=== PATIENT | female | born 1970 | race Caucasian/White ===

== ENCOUNTER 2020-08-06 10:43 | Outpatient (CLI) | payer MEDICARE, MEDICAID, SELFPAY ==
--- NOTE | 2020-08-06 10:50 | MR_ITS ---
WS: [id number] MRI LEFT SHOULDER NONCONTRAST TECHNIQUE: Sagittal T2, coronal T1, T2 and proton density imaging. Axial gradient PDE imaging. CLINICAL INFORMATION: PAIN IN LEFT ARM;CONCERNS OF BICEP TEAR COMPARISON: None. FINDINGS: Moderate degenerative arthritis at the AC joint. Mild downsloping of the acromion. Slight subacromial spurring. Small amount of edema at the AC joint. Small intrasubstance tear involving the distal supr aspinatus measuring 5 mm. Additional undersurface tear at the supraspinatus insertion. Tendinopathy w ithin the supraspinatus. Chronic thinning of the distal supraspinatus. Infraspinatus appears intact. Normal teres minor. Small subcoracoid effusion. Tendinopathy with chronic thinning of the distal subscapularis. Tiny mathew ps remnant in the bicipital groove with medial subluxation. Intra-articular biceps tendon is torn wit h edema in the rotator interval. MR/MR shoulder LT wo con* [id number] IMPRESSION: 1. Small intrasubstance tear involving the distal supraspinatus measuring 5 mm 2. Additional undersurface tear at the supraspinatus insertion. 3. Moderate degenerative arthritis AC joint with downsloping of the acromion. 4. Tiny biceps remnant in the bicipital groove with medial subluxation. Intra- articular biceps tendon appears torn with edema in the rotator interval. 5. Small subcoracoid effusion. 6. Degenerative fraying of the glenoid labrum.
== END 2020-08-06 10:44 | disposition home or self-care (01) ==
LOC: RADSHAW 10:49
PROVIDERS: Visit Provider Nurse Practitioner Family
DX: M79.89 Other specified soft tissue disorders (principal); M75.102 Unspecified rotator cuff tear or rupture of left shoulder, not specified as traumatic; M19.012 Primary osteoarthritis, left shoulder; M25.412 Effusion, left shoulder; X58.XXXA Exposure to other specified factors, initial encounter
CPT/HCPCS: 73221

== ENCOUNTER 2022-12-30 13:00 | Observation (INO) | payer MEDICARE, MEDICAID, SELFPAY ==
[2022-12-30] VITALS (22 sets, daily range): BP systolic 140–205; BP diastolic 85–139; PULSE 69–87; RESP 16–36; TEMP 36.4–37.3; O2SAT 92–97; BMI 36.6
--- NOTE | 2022-12-30 13:18 | ECG_ITS ---
[facility] Test Date: 2022-12-30 Pat Name: Valentina Brothers Department: Room: Gender: Female Nurse Assessor: : 1970 Requested By: Elvis Larsen Order Number: [id number] Judson MD: Melvin Arriola M.D. Measurements Intervals [place] Rate: 85 P: 43 WA: 116 QRS: 5 QRSD: 84 T: 40 QT: 373 QTc: 444 Interpretive Statements SINUS RHYTHM WITH SHORT WA INTERVAL Nonspecific T wave changes No previous ECG available for comparison Electronically Signed On 12-31-2022 0:27:37 CDT by Melvin Arriola M.D. [id number]
--- NOTE | 2022-12-30 14:57 | CTR_ITS ---
PROCEDURE INFORMATION: Exam: CT Head Without Contrast Exam date and time: 12/30/2022 3:09 PM Age: 52 years old Clinical indication: Pain; Headache not specified; Additional info: HTN, PRITCHETT TECHNIQUE: Imaging protocol: Computed tomography of the head without contrast. Axial, coronal and sagittal reformatted images were created and reviewed. Radiation optimization: All CT scans at this facility use at least one of these dose optimization techniques: automated exposure control; mA and/or kV adjustment per patient size (includes targeted exams where dose is matched to clinical indication); or iterative reconstruction. REPORTING DATA: Count of CT and Cardiac NM exams in prior 12 months: This patient has received 0 known CTs and 0 known cardiac nuclear medicine studies in the 12 months prior to the current study. COMPARISON: No relevant prior studies available. RADIATION DOSE METRICS: Total DLP (mGy-cm): 1073.71 FINDINGS: Brain: No CT evidence of acute intracranial hemorrhage or acute territorial infarction. No significant mass effect or midline shift. Basal cisterns patent. Cerebral ventricles: Normal in size and configuration. Paranasal sinuses: Polypoid ethmoid and right maxillary sinus mucosal thickening. Noo air-fluid levels. Mastoid air cells: Minimal opacification of the left greater than right mastoid air cells. Bones/joints: No acute osseous abnormality. Chronic deformity of the right medial orbital wall and orbital floor. Soft tissues: Grossly unremarkable. CT/CT head wo con* [id number] IMPRESSION: 1. No CT evidence of acute intracranial pathology. 2. Additional findings, as above.
--- NOTE | 2022-12-30 14:57 | XR_ITS ---
WS: [id number] Exam: XR chest 1V portable [id number] Date/Time of Exam: 12/30/2022 3:10 PM Reason For Exam: sob, hypertension Comparison 04/24/2009. The lungs are fully inflated and clear. Cardiomediastinal silhouette is unremarkable for technique. N o pleural effusions. Probable hiatal hernia. Regional bony elements are intact. XR/XR chest 1V portable [id number] IMPRESSION: 1. No acute process noted. 2. Probable hiatal hernia.
--- NOTE | 2022-12-30 14:58 | W.ED.GENADLT ---
Documented by User: LENORA Medellin 01/03/23 07:29 HPI - General Adult General: Chief complaint: Arrhythmia/Palpitations Stated complaint: Sent from , BP issues Time Seen by Provider: 12/30/22 14:46 Source: patient Mode of arrival: ambulatory Limitations: no limitations History of Present Illness: Patient is a 52-year-old female who presents to the ED today for evaluation of hypertension. Patient states her home health nurse routinely came to her house today and checked her blood pressure and she was told it was significantly elevated and that she needed to go get medical attention. She states her primary care provider is Dr. Nora Donahue but she was not able to get into her so she went to a [facility] walk-in clinic. States blood pressure over there was significantly elevated as well so they told her to come to the emergency department. Upon arrival here her blood pressure is 190s/130s. She tells me she generally does not feel well. She complains of a headache, dizziness, intermittent blurry vision, and shortness of breath. She states she has had some combination of the symptoms intermittently over the past several weeks. Patient tells me she does not take any prescription medications. Onset (ago): week(s) Relieving factors: none Exacerbating factors: none Associated symptoms: Reports dyspnea and headache(s); Deny chest pain, confusion, malaise, nausea, rash, palpitations, syncope or vomiting Treatments prior to arrival: none Review of Systems Const: Reports: other (generally states she feels poorly); Denies: fever(s), chills, body aches, fatigue or malaise Eyes: Reports: blurry vision (at times); Denies: change in vision, photophobia, floaters or seeing flashes ENMT: Denies: throat pain, odynophagia, nasal discharge, nasal congestion, post nasal drip or sinus pain Card: Denies: chest pain, palpitations, irregular heart rhythm, edema, swelling of feet/ankles, lightheadedness, syncope, pre-syncope, dyspnea on exertion, orthopnea, leg pain with exertion or acrocyanosis Resp: Reports: dyspnea; Denies: productive cough, non-productive cough, wheezing, pain on inspiration, change in phlegm color, hemoptysis or chest congestion GI: Denies: abdominal pain, nausea, vomiting, heartburn or diarrhea : Denies: flank pain or dysuria Musc: Denies: neck pain, back pain, extremity pain, extremity swelling or joint pain Skin/Breast: Denies: rash Neuro: Reports: headache(s) and dizziness; Denies: numbness in extremities, weakness in extremities, sensory changes, difficulty walking, confusion, behavioral changes, Slurred speech present or seizure-like activity PFS ED PFSH: Medical History Hammer toe No pertinent past medical history Surgical History H/O: hysterectomy History of hip surgery Family History Other Diabetes Hypertension Melanoma Social History Alcohol intake: never Physical Exam Const: COMMON NORMALS: no acute distress, patient oriented x3, alert and well nourished GENERAL APPEARANCE: cooperative NUTRITIONAL APPEARANCE: obese ORIENTATION/CONSCIOUSNESS: Yes awake, Yes oriented to person, Yes oriented to place and Yes oriented to time OTHER: looks mildly ill HENMT: COMMON NORMALS: normocephalic and atraumatic HEAD & SCALP: normal to inspection, normocephalic and atraumatic FACE & SINUS: normal facial exam Eye: COMMON NORMALS: Equal, round and reactive pupils present and EOMs intact bilaterally GENERAL EYE: appearance normal, both eyes and all related structures PUPIL: Yes Equal, round and reactive pupils present Neck/C-Spine: COMMON NORMALS: full ROM, no lymphadenopathy, no meningeal signs and no JVD GENERAL: Yes normal visual inspection Chest: COMMONS NORMALS: normal inspection of the chest and normal palpation of entire chest wall Resp: COMMON NORMALS: normal respiratory effort and clear to auscultation bilaterally AUSCULTATION: clear to auscultation bilaterally Cardio: COMMON NORMALS: no JVD, regular rate and regular rhythm RATE: regular rate RHYTHM: regular rhythm GI: COMMON NORMALS: Normal to inspection, nondistended, normoactive bowel sounds present, Soft to palpation, non-tender, No hepatosplenomegaly present and no masses PALPATION: Yes Soft to palpation and Yes No hepatosplenomegaly present Extremity: COMMON NORMALS: normal to inspection GENERAL: Yes normal exam except as noted Neuro: KATHIE COMA SCALE: document GCS findings Kathie coma scale eye opening: Spontaneous [place] coma scale verbal response: Orientated [place] coma scale motor response: Obey commands Kathie coma scale total score: 15 COMMON NORMALS: patient oriented x3, CN's II-XII intact bilaterally, moves all extremities, no focal motor deficits and no sensory deficits noted SENSORIUM/ORIENTATION: Yes alert, Yes oriented to person, Yes oriented to place and Yes oriented to time MENINGEAL SIGNS: Yes no meningeal signs Skin: COMMON NORMALS: no rashes or lesions noted GENERAL SKIN EXAM: no rashes or lesions noted Course Vital Signs: Vital signs: Vital Signs Temperature 98.2 F 01/01/23 04:57 Pulse Rate 86 01/01/23 10:35 Respiratory Rate 18 01/01/23 10:35 Blood Pressure 142/92 01/01/23 08:00 Pulse Oximetry 96 01/01/23 08:00 Oxygen Delivery Me thod 01/01/23 08:00 [facility] - General Adult Lab Data 12/30/22 14:45 12/30/22 14:45 Radiology Impressions Chest X-Ray 12/30/22 14:57 IMPRESSION: 1. No acute process noted. 2. Probable hiatal hernia. Head CT 12/30/22 14:57 IMPRESSION: 1. No CT evidence of acute intracranial pathology. 2. Additional findings, as above. Laboratory Results WBC 9.6 10^3/uL (4.0-10.0) 12/30/22 14:45 RBC 5.75 10^6/uL (4.1-5.3) H 12/30/22 14:45 Hgb 15.9 g/dL (11.5-15.3) H 12/30/22 14:45 Hct 50.9 % (37.0-47.0) H 12/30/22 14:45 MCV 88.5 fl (81-99) 12/30/22 14:45 MCH 27.7 pg (28.0-34.0) L 12/30/22 14:45 MCHC 31.2 g/dL (30.0-36.0) 12/30/22 14:45 RDW 14.1 % (12.1-15.1) 12/30/22 14:45 Plt Count 340 10^3/cmm (130-400) 12/30/22 14:45 MPV 10.9 fL (7.4-10.4) H 12/30/22 14:45 Neut % (Auto) 68.7 % 12/30/22 14:45 Lymph % (Auto) 23.4 % 12/30/22 14:45 Bartholomew % (Auto) 5.1 % 12/30/22 14:45 Eos % (Auto) 2.2 % 12/30/22 14:45 Baso % (Auto) 0.4 % 12/30/22 14:45 Neut # (Auto) 6.57 10^3/uL (1.8-7.7) 12/30/22 14:45 Lymph # (Auto) 2.2 10^3/uL (0.8-4.8) 12/30/22 14:45 Bartholomew # (Auto) 0.5 10^3/uL (0.2-0.9) 12/30/22 14:45 Eos # (Auto) 0.2 10^3/uL (0.0-0.8) 12/30/22 14:45 Baso # (Auto) 0.0 10^3/uL (0.0-0.1) 12/30/22 14:45 Nucleated RBC % (auto) 0 % 12/30/22 14:45 Nucleated RBCs # 0.0 /100WBC 12/30/22 14:45 Sodium 139 mmol/L (136-145) 12/30/22 14:45 Potassium 4.4 mmol/L (3.5-5.1) 12/30/22 14:45 Chloride 102 mmol/L (98-107) 12/30/22 14:45 Carbon Dioxide 24 mmol/L (22-29) 12/30/22 14:45 Anion Gap 17.4 (5-19) 12/30/22 14:45 BUN 16 mg/dL (6-20) 12/30/22 14:45 Creatinine 0.6 mg/dL (0.5-0.9) 12/30/22 14:45 GFR Calculation 104.2 mL/min (90-130) 12/30/22 14:45 Glucose 93 mg/dL (65-115) 12/30/22 14:45 Estimat Average Glucose 128 12/30/22 14:58 Hemoglobin A1c 6.1 % (4.0-6.0) H 12/30/22 14:58 Calculated Osmolality 289 mOsm/kg (285-295) 12/30/22 14:45 Calcium 9.7 mg/dL (8.5-10.5) 12/30/22 14:45 Total Bilirubin 0.4 mg/dL (0.15-1.2) 12/30/22 14:45 AST 23 U/L (0-32) 12/30/22 14:45 ALT 16 U/L (0-33) 12/30/22 14:45 Alkaline Phosphatase 100 U/L (35-105) 12/30/22 14:45 Troponin T Baseline 16 ng/L (0-10) H 12/30/22 14:45 Troponin T 120 Minute 15.83 ng/L (0-10) H 12/30/22 16:23 Delta Troponin T -0.17 ABS# (0-10) L 12/30/22 16:23 NT-Pro-B Natriuret Pep 741 pg/mL (0-125) H 12/30/22 14:45 Total Protein 8.2 g/dL (6.6-8.7) 12/30/22 14:45 Albumin 4.0 g/dL (3.5-5.2) 12/30/22 14:45 Globulin 4.2 g/dL (1.3-4.6) 12/30/22 14:45 TSH 1.28 uIU/mL (0.27-4.20) 12/30/22 16:23 Urine Color Yellow (Yellow) 12/30/22 15:45 Urine Appearance Cloudy (CLEAR) A 12/30/22 15:45 Urine pH 5 (5-7) 12/30/22 15:45 Ur Specific [place] 1.025 (1.005-1.030) 12/30/22 15:45 Urine Protein Neg (Negative) 12/30/22 15:45 Urine Glucose (UA) Norm (Normal) 12/30/22 15:45 Urine Ketones Negative (Negative) 12/30/22 15:45 Urine Blood Neg (Negative) 12/30/22 15:45 Urine Nitrate Negative (Negative) 12/30/22 15:45 Urine Bilirubin Neg (Negative) 12/30/22 15:45 Urine Urobilinogen 1 mg/dL (Negative) H 12/30/22 15:45 Ur Leukocyte Esterase Negative (Negative) 12/30/22 15:45 Urine RBC 0-4 /hpf (0-2) H 12/30/22 15:45 Urine WBC 0-4 /hpf (0-5) H 12/30/22 15:45 Ur Squamous Epith Cells 40-55 /hpf (0-5) H 12/30/22 15:45 Amorphous Sediment Not Reportable 12/30/22 15:45 Urine Bacteria 1+ /hpf (NONE) H 12/30/22 15:45 Urine Opiates Screen Negative ng/mL (Negative) 12/30/22 15:45 Ur Barbiturates Screen Negative ng/mL (Negative) 12/30/22 15:45 Ur Phencyclidine Scrn Negative ng/mL (Negative) 12/30/22 15:45 Ur Amphetamines Screen Positive ng/mL (Negative) H 12/30/22 15:45 U Benzodiazepines Scrn Negative ng/mL (Negative) 12/30/22 15:45 Urine Cocaine Screen Negative ng/mL (Negative) 12/30/22 15:45 U Marijuana (THC) Screen Positive ng/mL (Negative) H 12/30/22 15:45 Discharge Plan Discharge Patient Disposition: Admitted As Inpatient Admit Provider: Troy Montano Clinical Impression: Hypertensive emergency, T wave inversion in EKG Condition: Stable Sign Out Sign Out Data: Patient Sign Out occurred on 12/30/22 at 17:03. Patient's care was discussed, and care was transferred from to Jatinder Dee. Coding Level of Care Code ED Setter Automatic Spinning Lathe for Chg Fwd Documented by User: ROSANA Nguyen 12/30/22 21:12 HPI - General Adult General: Chief complaint: Arrhythmia/Palpitations Stated complaint: Sent from , BP issues Time Seen by Provider: 12/30/22 14:46 PFSH ED PFSH: Medical History Hammer toe No pertinent past medical history Surgical History H/O: hysterectomy History of hip surgery Family History Other Diabetes Hypertension Melanoma Social History Alcohol intake: never Physical Exam Neuro: KATHIE COMA SCALE: document GCS findings [place] coma scale total score: 15 Course Vital Signs: Vital signs: Vital Signs Temperature 98.2 F 01/01/23 04:57 Pulse Rate 86 01/01/23 10:35 Respiratory Rate 18 01/01/23 10:35 Blood Pressure 142/92 01/01/23 08:00 Pulse Oximetry 96 01/01/23 08:00 Oxygen Delivery Me thod 01/01/23 08:00 MDM - General Adult Medical Decision Making Patient was brought in today for concerns of uncontrolled hypertension. Lab Data 12/30/22 14:45 12/30/22 14:45 Radiology Impressions Chest X-Ray 12/30/22 14:57 IMPRESSION: 1. No acute process noted. 2. Probable hiatal hernia. Head CT 12/30/22 14:57 IMPRESSION: 1. No CT evidence of acute intracranial pathology. 2. Additional findings, as above. Laboratory Results WBC 9.6 10^3/uL (4.0-10.0) 12/30/22 14:45 RBC 5.75 10^6/uL (4.1-5.3) H 12/30/22 14:45 Hgb 15.9 g/dL (11.5-15.3) H 12/30/22 14:45 Hct 50.9 % (37.0-47.0) H 12/30/22 14:45 MCV 88.5 fl (81-99) 12/30/22 14:45 MCH 27.7 pg (28.0-34.0) L 12/30/22 14:45 MCHC 31.2 g/dL (30.0-36.0) 12/30/22 14:45 RDW 14.1 % (12.1-15.1) 12/30/22 14:45 Plt Count 340 10^3/cmm (130-400) 12/30/22 14:45 MPV 10.9 fL (7.4-10.4) H 12/30/22 14:45 Neut % (Auto) 68.7 % 12/30/22 14:45 Lymph % (Auto) 23.4 % 12/30/22 14:45 Bartholomew % (Auto) 5.1 % 12/30/22 14:45 Eos % (Auto) 2.2 % 12/30/22 14:45 Baso % (Auto) 0.4 % 12/30/22 14:45 Neut # (Auto) 6.57 10^3/uL (1.8-7.7) 12/30/22 14:45 Lymph # (Auto) 2.2 10^3/uL (0.8-4.8) 12/30/22 14:45 Bartholomew # (Auto) 0.5 10^3/uL (0.2-0.9) 12/30/22 14:45 Eos # (Auto) 0.2 10^3/uL (0.0-0.8) 12/30/22 14:45 Baso # (Auto) 0.0 10^3/uL (0.0-0.1) 12/30/22 14:45 Nucleated RBC % (auto) 0 % 12/30/22 14:45 Nucleated RBCs # 0.0 /100WBC 12/30/22 14:45 Sodium 139 mmol/L (136-145) 12/30/22 14:45 Potassium 4.4 mmol/L (3.5-5.1) 12/30/22 14:45 Chloride 102 mmol/L (98-107) 12/30/22 14:45 Carbon Dioxide 24 mmol/L (22-29) 12/30/22 14:45 Anion Gap 17.4 (5-19) 12/30/22 14:45 BUN 16 mg/dL (6-20) 12/30/22 14:45 Creatinine 0.6 mg/dL (0.5-0.9) 12/30/22 14:45 GFR Calculation 104.2 mL/min (90-130) 12/30/22 14:45 Glucose 93 mg/dL (65-115) 12/30/22 14:45 Estimat Average Glucose 128 12/30/22 14:58 Hemoglobin A1c 6.1 % (4.0-6.0) H 12/30/22 14:58 Calculated Osmolality 289 mOsm/kg (285-295) 12/30/22 14:45 Calcium 9.7 mg/dL (8.5-10.5) 12/30/22 14:45 Total Bilirubin 0.4 mg/dL (0.15-1.2) 12/30/22 14:45 AST 23 U/L (0-32) 12/30/22 14:45 ALT 16 U/L (0-33) 12/30/22 14:45 Alkaline Phosphatase 100 U/L (35-105) 12/30/22 14:45 Troponin T Baseline 16 ng/L (0-10) H 12/30/22 14:45 Troponin T 120 Minute 15.83 ng/L (0-10) H 12/30/22 16:23 Delta Troponin T -0.17 ABS# (0-10) L 12/30/22 16:23 NT-Pro-B Natriuret Pep 741 pg/mL (0-125) H 12/30/22 14:45 Total Protein 8.2 g/dL (6.6-8.7) 12/30/22 14:45 Albumin 4.0 g/dL (3.5-5.2) 12/30/22 14:45 Globulin 4.2 g/dL (1.3-4.6) 12/30/22 14:45 TSH 1.28 uIU/mL (0.27-4.20) 12/30/22 16:23 Urine Color Yellow (Yellow) 12/30/22 15:45 Urine Appearance Cloudy (CLEAR) A 12/30/22 15:45 Urine pH 5 (5-7) 12/30/22 15:45 Ur Specific [place] 1.025 (1.005-1.030) 12/30/22 15:45 Urine Protein Neg (Negative) 12/30/22 15:45 Urine Glucose (UA) Norm (Normal) 12/30/22 15:45 Urine Ketones Negative (Negative) 12/30/22 15:45 Urine Blood Neg (Negative) 12/30/22 15:45 Urine Nitrate Negative (Negative) 12/30/22 15:45 Urine Bilirubin Neg (Negative) 12/30/22 15:45 Urine Urobilinogen 1 mg/dL (Negative) H 12/30/22 15:45 Ur Leukocyte Esterase Negative (Negative) 12/30/22 15:45 Urine RBC 0-4 /hpf (0-2) H 12/30/22 15:45 Urine WBC 0-4 /hpf (0-5) H 12/30/22 15:45 Ur Squamous Epith Cells 40-55 /hpf (0-5) H 12/30/22 15:45 Amorphous Sediment Not Reportable 12/30/22 15:45 Urine Bacteria 1+ /hpf (NONE) H 12/30/22 15:45 Urine Opiates Screen Negative ng/mL (Negative) 12/30/22 15:45 Ur Barbiturates Screen Negative ng/mL (Negative) 12/30/22 15:45 Ur Phencyclidine Scrn Negative ng/mL (Negative) 12/30/22 15:45 Ur Amphetamines Screen Positive ng/mL (Negative) H 12/30/22 15:45 U Benzodiazepines Scrn Negative ng/mL (Negative) 12/30/22 15:45 Urine Cocaine Screen Negative ng/mL (Negative) 12/30/22 15:45 U Marijuana (THC) Screen Positive ng/mL (Negative) H 12/30/22 15:45 Discharge Plan Discharge Patient Disposition: Admitted As Inpatient Admit Provider: Troy Montano Clinical Impression: Hypertensive emergency, T wave inversion in EKG Condition: Stable Sign Out Sign Out Data: Patient Sign Out occurred on 12/30/22 at 17:03. Patient's care was discussed, and care was transferred from to Jatinder Dee. Coding Level of Care Code ED Setter Automatic Spinning Lathe for Chg Fwd Documented by User: Elvis Chavez DO 12/31/22 06:40 HPI - General Adult General: Chief complaint: Arrhythmia/Palpitations Stated complaint: Sent from , BP issues Time Seen by Provider: 12/30/22 14:46 PFSH ED PFSH: Medical History Arabellaer toe No pertinent past medical history Surgical History H/O: hysterectomy History of hip surgery Family History Other Diabetes Hypertension Melanoma Social History Alcohol intake: never Physical Exam Neuro: KATHIE COMA SCALE: document GCS findings Kathie coma scale total score: 15 Course Vital Signs: Vital signs: Vital Signs Temperature 98.2 F 01/01/23 04:57 Pulse Rate 86 01/01/23 10:35 Respiratory Rate 18 01/01/23 10:35 Blood Pressure 142/92 01/01/23 08:00 Pulse Oximetry 96 01/01/23 08:00 Oxygen Delivery Me thod 01/01/23 08:00 MDM - General Adult Medical Decision Making Patient was brought in today for concerns of uncontrolled hypertension. Patient care handoff received from continuation of ED evaluation. I personally saw and evaluated patient and reperformed can portions of E/M. Blood pressure is improved however patient's repeat EKG shows inverted T waves in the inferior leads in the lateral leads. She is not currently having any chest pain. Patient reexamined. Recommend observation follow-up troponins and will need further evaluation. Discussed with hospitalist orders written Medical Records I reviewed the patient's medical records. Lab Data I reviewed the patient's lab results. 12/30/22 14:45 12/30/22 14:45 Radiology Impressions Chest X-Ray 12/30/22 14:57 IMPRESSION: 1. No acute process noted. 2. Probable hiatal hernia. Head CT 12/30/22 14:57 IMPRESSION: 1. No CT evidence of acute intracranial pathology. 2. Additional findings, as above. Laboratory Results WBC 9.6 10^3/uL (4.0-10.0) 12/30/22 14:45 RBC 5.75 10^6/uL (4.1-5.3) H 12/30/22 14:45 Hgb 15.9 g/dL (11.5-15.3) H 12/30/22 14:45 Hct 50.9 % (37.0-47.0) H 12/30/22 14:45 MCV 88.5 fl (81-99) 12/30/22 14:45 MCH 27.7 pg (28.0-34.0) L 12/30/22 14:45 MCHC 31.2 g/dL (30.0-36.0) 12/30/22 14:45 RDW 14.1 % (12.1-15.1) 12/30/22 14:45 Plt Count 340 10^3/cmm (130-400) 12/30/22 14:45 MPV 10.9 fL (7.4-10.4) H 12/30/22 14:45 Neut % (Auto) 68.7 % 12/30/22 14:45 Lymph % (Auto) 23.4 % 12/30/22 14:45 Bartholomew % (Auto) 5.1 % 12/30/22 14:45 Eos % (Auto) 2.2 % 12/30/22 14:45 Baso % (Auto) 0.4 % 12/30/22 14:45 Neut # (Auto) 6.57 10^3/uL (1.8-7.7) 12/30/22 14:45 Lymph # (Auto) 2.2 10^3/uL (0.8-4.8) 12/30/22 14:45 Bartholomew # (Auto) 0.5 10^3/uL (0.2-0.9) 12/30/22 14:45 Eos # (Auto) 0.2 10^3/uL (0.0-0.8) 12/30/22 14:45 Baso # (Auto) 0.0 10^3/uL (0.0-0.1) 12/30/22 14:45 Nucleated RBC % (auto) 0 % 12/30/22 14:45 Nucleated RBCs # 0.0 /100WBC 12/30/22 14:45 Sodium 139 mmol/L (136-145) 12/30/22 14:45 Potassium 4.4 mmol/L (3.5-5.1) 12/30/22 14:45 Chloride 102 mmol/L (98-107) 12/30/22 14:45 Carbon Dioxide 24 mmol/L (22-29) 12/30/22 14:45 Anion Gap 17.4 (5-19) 12/30/22 14:45 BUN 16 mg/dL (6-20) 12/30/22 14:45 Creatinine 0.6 mg/dL (0.5-0.9) 12/30/22 14:45 GFR Calculation 104.2 mL/min (90-130) 12/30/22 14:45 Glucose 93 mg/dL (65-115) 12/30/22 14:45 Estimat Average Glucose 128 12/30/22 14:58 Hemoglobin A1c 6.1 % (4.0-6.0) H 12/30/22 14:58 Calculated Osmolality 289 mOsm/kg (285-295) 12/30/22 14:45 Calcium 9.7 mg/dL (8.5-10.5) 12/30/22 14:45 Total Bilirubin 0.4 mg/dL (0.15-1.2) 12/30/22 14:45 AST 23 U/L (0-32) 12/30/22 14:45 ALT 16 U/L (0-33) 12/30/22 14:45 Alkaline Phosphatase 100 U/L (35-105) 12/30/22 14:45 Troponin T Baseline 16 ng/L (0-10) H 12/30/22 14:45 Troponin T 120 Minute 15.83 ng/L (0-10) H 12/30/22 16:23 Delta Troponin T -0.17 ABS# (0-10) L 12/30/22 16:23 NT-Pro-B Natriuret Pep 741 pg/mL (0-125) H 12/30/22 14:45 Total Protein 8.2 g/dL (6.6-8.7) 12/30/22 14:45 Albumin 4.0 g/dL (3.5-5.2) 12/30/22 14:45 Globulin 4.2 g/dL (1.3-4.6) 12/30/22 14:45 TSH 1.28 uIU/mL (0.27-4.20) 12/30/22 16:23 Urine Color Yellow (Yellow) 12/30/22 15:45 Urine Appearance Cloudy (CLEAR) A 12/30/22 15:45 Urine pH 5 (5-7) 12/30/22 15:45 Ur Specific [place] 1.025 (1.005-1.030) 12/30/22 15:45 Urine Protein Neg (Negative) 12/30/22 15:45 Urine Glucose (UA) Norm (Normal) 12/30/22 15:45 Urine Ketones Negative (Negative) 12/30/22 15:45 Urine Blood Neg (Negative) 12/30/22 15:45 Urine Nitrate Negative (Negative) 12/30/22 15:45 Urine Bilirubin Neg (Negative) 12/30/22 15:45 Urine Urobilinogen 1 mg/dL (Negative) H 12/30/22 15:45 Ur Leukocyte Esterase Negative (Negative) 12/30/22 15:45 Urine RBC 0-4 /hpf (0-2) H 12/30/22 15:45 Urine WBC 0-4 /hpf (0-5) H 12/30/22 15:45 Ur Squamous Epith Cells 40-55 /hpf (0-5) H 12/30/22 15:45 Amorphous Sediment Not Reportable 12/30/22 15:45 Urine Bacteria 1+ /hpf (NONE) H 12/30/22 15:45 Urine Opiates Screen Negative ng/mL (Negative) 12/30/22 15:45 Ur Barbiturates Screen Negative ng/mL (Negative) 12/30/22 15:45 Ur Phencyclidine Scrn Negative ng/mL (Negative) 12/30/22 15:45 Ur Amphetamines Screen Positive ng/mL (Negative) H 12/30/22 15:45 U Benzodiazepines Scrn Negative ng/mL (Negative) 12/30/22 15:45 Urine Cocaine Screen Negative ng/mL (Negative) 12/30/22 15:45 U Marijuana (THC) Screen Positive ng/mL (Negative) H 12/30/22 15:45 Discharge Plan Discharge Patient Disposition: Admitted As Inpatient Admit Provider: Troy Montano Clinical Impression: Hypertensive emergency, T wave inversion in EKG Condition: Stable Sign Out Sign Out Data: Patient Sign Out occurred on 12/30/22 at 17:03. Patient's care was discussed, and care was transferred from to Jatinder Dee. Coding Level of Care Code ED Setter Automatic Spinning Lathe for Eb Rene
[2022-12-30 15:06] LABS: Basophils % 0.4 %; Eosinophils # 0.2 10^3/uL (0.0-0.8); Eosinophils % 2.2 %; Hematocrit 50.9 % (37.0-47.0); Hemoglobin 15.9 g/dL (11.5-15.3); Lymphocytes # 2.2 10^3/uL (0.8-4.8); Lymphocytes % 23.4 %; Mean Corpuscular HGB Conc 31.2 g/dL (30.0-36.0); Mean Corpuscular Hemoglobin 27.7 pg (28.0-34.0); Mean Corpuscular Volume 88.5 fl (81-99); Mean Platelet Volume 10.9 fL (7.4-10.4); Monocytes # 0.5 10^3/uL (0.2-0.9); Monocytes % 5.1 %; Neutrophils # 6.57 10^3/uL (1.8-7.7); Neutrophils % 68.7 %; Nucleated Red Blood Cells % 0 %; Platelet Count 340 10^3/cmm (130-400); Red Blood Count 5.75 10^6/uL (4.1-5.3); Red Cell Distribution Width 14.1 % (12.1-15.1); White Blood Count 9.6 10^3/uL (4.0-10.0)
[2022-12-30 15:26] LABS: Troponin(5th) Baseline 16 ng/L (0-10)
[2022-12-30] MEDS: hyDRALAzine 20 mg/mL INJ 1 mL 10 MG IVP (15:26)
[2022-12-30 15:28] LABS: Alanine Aminotransferase 16 U/L (0-33); Alkaline Phosphatase 100 U/L (35-105); Anion Gap 17.4 (5-19); Aspartate Amino Transferase 23 U/L (0-32); Blood Urea Nitrogen 16 mg/dL (6-20); Calcium 9.7 mg/dL (8.5-10.5); Carbon Dioxide 24 mmol/L (22-29); Chloride 102 mmol/L (98-107); Globulin 4.2 g/dL (1.3-4.6); Glomerular Filtration Rate 104.2 mL/min (90-130); Glucose 93 mg/dL (65-115); Osmolality Calculated 289 mOsm/kg (285-295); Potassium 4.4 mmol/L (3.5-5.1); Sodium 139 mmol/L (136-145); Total Bilirubin 0.4 mg/dL (0.15-1.2); Total Protein 8.2 g/dL (6.6-8.7)
[2022-12-30 16:29] LABS: Add Urine Microscopic? YES; Bilirubin Urine Neg (Negative); Blood Urine Neg (Negative); Glucose Urine UA Norm (Normal); Ketones Urine Negative (Negative); Leukocyte Esterase Urine Negative (Negative); Nitrate Urine Negative (Negative); Protein Urine Neg (Negative); Specific Gravity, Urine 1.025 (1.005-1.030); Urine Appearance Cloudy (CLEAR); Urine Color Yellow (Yellow); Urobilinogen Urine 1 mg/dL (Negative); pH Urine 5 (5-7)
[2022-12-30 16:31] LABS: Bacteria Urine 1+ /hpf; RBC Urine 0-4 /hpf (0-2); Squamous Epithelial Cell Urine 40-55 /hpf (0-5); WBC Urine 0-4 /hpf (0-5)
[2022-12-30 16:32] LABS: NT Pro B Type Natriuretic Pept 741 pg/mL (0-125)
[2022-12-30] MEDS: metoprolol tartrate 25 mg Tablet PO (16:37)
[2022-12-30] MEDS: metoprolol tartrate 1 mg/1 mL SDV 5 mL 2.5 MG IVP (16:38)
[2022-12-30 16:55] LABS: Troponin 5 2HR 15.83 ng/L (0-10)
[2022-12-30 16:56] LABS: Troponin 5 2HR Delta -0.17 ABS# (0-10)
--- NOTE | 2022-12-30 17:11 | ECG_ITS ---
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 Measurements Intervals [place] Rate: 79 P: 59 OK: 120 QRS: -20 QRSD: 89 T: 224 QT: 467 QTc: 536 Interpretive Statements SINUS RHYTHM MODERATE T-WAVE ABNORMALITY, CONSIDER ANTEROLATERAL ISCHEMIA [-0.1+ mV T-WAVE IN V3-V6] MODERATE T-WAVE ABNORMALITY, CONSIDER INFERIOR ISCHEMIA [-0.1+ mV T-WAVE IN II/aVF] Compared to ECG 12/30/2022 13:23:17 T-wave abnormality now present Possible ischemia now present Short OK interval no longer present Electronically Signed On 12-31-2022 0:53:45 CDT by Melvin Arriola M.D. [id number]
--- NOTE | 2022-12-30 17:32 | PM.HP ---
Providers/Chief Complaint Primary Care Provider: Nora Donahue MD Chief Complaint: Sent from UC, BP issues History of Present Illness Valentina Brothers is a 52 year old female presented to the hospital on request of her insurance company when this sent home health care agent, her pressure was running high that is why she was recommended to go to the hospital. In the ER she has received multiple medications, EKG showing T wave inversion that is why hospitalist has requested to admit her because of EKG changes. Troponins without significant delta patient is chest pain-free current blood pressure still high 170/102 mmHg She is doing well on room air Normal CBC and BMP Cells amputation of EKG LVH related EKG changes Head CT unremarkable Chest x-ray without any signs of pulm edema Patient is stating she does not carry any medical history other than hypertension she does not take any medication for that, patient is stating she gets short of breath on exertion and takes pineapple to feel better. No chest pain nausea, vomiting or diarrhea. She uses recreational marijuana does not smoke cigarettes or alcohol, she quit 10 years ago Review of Systems Const: Denies: fever(s) Eyes: Denies: change in vision ENMT: Denies: throat pain Card: Denies: chest pain Resp: Denies: dyspnea GI: Denies: abdominal pain : Denies: flank pain Musc: Denies: neck pain Skin/Breast: Denies: rash Medications/Allergies Home Medications Medication Instructions Recorded Confirmed Last Taken Type hydroxyzine HCl 25 mg tablet 25 mg PO BID PRN itching #30 tabs 09/13/20 07/30/21 Unknown Rx iloprost 10 mcg/mL solution for 5 mcg inhalation 6XD 09/13/20 07/30/21 Unknown History nebulization (Ventavis) loratadine 10 mg tablet (Claritin) 10 mg PO DAILY 09/13/20 07/30/21 Unknown History multivitamin with iron (Daily 1 tab PO DAILY 09/13/20 07/30/21 Unknown History Multiple Vitamins with Iron tablet) mupirocin 2 % topical ointment 1 applic topical BID #22 grams 09/13/20 07/30/21 Unknown Rx mometasone 0.1 % topical ointment 1 applic topical BID 2 weeks #45 09/14/20 07/30/21 Unknown Rx grams permethrin 5 % topical cream 1 applic topical .q 7 days 2 doses 06/04/21 07/30/21 Unknown Rx #60 grams betamethasone dipropionate 0.05 % 1 applic topical BID #45 grams 07/31/21 07/31/21 Unknown Rx topical ointment triamcinolone acetonide 0.1 % 1 applic topical BID #453.6 grams 07/31/21 07/31/21 Unknown Rx topical ointment Allergies Allergy/AdvReac Type Severity Reaction Status Date / Time No Known Allergies Allergy Verified 07/30/21 15:37 PFSH Acute PFSH: Medical History Hammer toe No pertinent past medical history Surgical History H/O: hysterectomy History of hip surgery Family History Other Diabetes Hypertension Melanoma Social History Alcohol intake: never Vitals/I&O/Wt Last Vital Signs Temp 97.7 F 12/30/22 13:14 Pulse 83 12/30/22 16:30 Resp 18 12/30/22 14:48 BP 170/102 12/30/22 16:30 Pulse Ox 94 12/30/22 16:30 O2 Del Method 12/30/22 16:00 Weight last 48 hrs Weight 99.79 kg Physical Exam Narrative: Morbidly obese female Hemodynamically stable with hypertension GCS 15 nonfocal neuro exam Currently doing well on room air Pleasant and cooperative Appears stated age No acute distress No active chest pain S1, S2 No audible stridor or wheezing Facial flushing Euvolemic Data 12/30/22 14:45 12/30/22 14:45 A&P Assessment and plan (1) Hypertensive emergency: (2) T wave inversion in EKG: (3) Morbid obesity: Plan Hypertensive emergency Troponin leak noted EKG showing T wave inversion Chest pain-free Will request echo and stress test in the morning Serial troponin and EKG Check TSH and drug screen Abnormal urine without any signs of UTI Head CT unremarkable Chest x-ray without any signs of pulm edema Currently patient is awake and alert without any signs of pulm edema Hemoconcentration related hemoglobin 15.9 Full code Cardiac diet DVT prophylaxis on board Optimize antihypertensive regimen Attestations Medical Necessity Statement*: Anticipating discharge within 48 hours and High MDM includes number and complexity of problems actively addressed during encounter, amount and/or complexity of data reviewed/ordered and described risk of complication, morbidity or mortality of management as documented Diagnoses Hypertensive emergency I16.1 T wave inversion in EKG R94.31 Morbid obesity E66.01
[2022-12-30] MEDS: labetalol 5 mg/mL SDV 20mL 10 MG IVP (17:58)
[2022-12-30 20:03] LABS: Thyroid Stimulating Hormone 1.28 uIU/mL (0.27-4.20)
[2022-12-30] MEDS: lisinopril 5 mg Tablet PO (20:04)
[2022-12-30] MEDS: enoxaparin 40 mg/0.4 mL Syringe SUBCUT (20:04)
[2022-12-30 20:35] LABS: Estmated Average Glucose 128; Hemoglobin A1C 6.1 % (4.0-6.0)
[2022-12-30 20:43] LABS: Amphetamines Screen Urine Positive (Negative); Barbiturates Screen Urine Negative (Negative); Benzodiazepines Screen Urine Negative (Negative); Cocaine Screen Urine Negative (Negative); Opiate Screen Urine Negative (Negative); PCP Screen Urine Negative (Negative); THC Screen Urine Positive (Negative)
[2022-12-30 22:16] LABS: Troponin 5 6HR 16.63 ng/L (0-10)
--- NOTE | 2022-12-30 22:20 | ECG_ITS ---
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 Measurements Intervals [place] Rate: 74 P: 66 SC: 150 QRS: 61 QRSD: 84 T: -55 QT: 390 QTc: 433 Interpretive Statements SINUS RHYTHM MODERATE T-WAVE ABNORMALITY, CONSIDER ANTERIOR ISCHEMIA [-0.1+ mV T-WAVE IN V3/V4] MODERATE T-WAVE ABNORMALITY, CONSIDER INFERIOR ISCHEMIA [-0.1+ mV T-WAVE IN II/aVF] Compared to ECG 12/30/2022 17:11:09 No significant changes Electronically Signed On 12-31-2022 0:57:21 CDT by Melvin Arriola M.D. [id number]
[2022-12-30 22:28] LABS: Troponin 5 6HR Delta 0.63 ng/L (0-12)
[2022-12-30] MEDS: hyDRALAzine 25 mg Tablet PO (23:24)
[2022-12-31] VITALS (51 sets, daily range): BP systolic 119–187; BP diastolic 67–118; PULSE 65–98; RESP 9–28; TEMP 36.5–36.6; O2SAT 90–100
[2022-12-31 03:50] LABS: Basophils # 0.1 10^3/uL (0.0-0.1); Basophils % 0.5 %; Eosinophils # 0.3 10^3/uL (0.0-0.8); Eosinophils % 2.3 %; Hematocrit 44.5 % (37.0-47.0); Hemoglobin 13.9 g/dL (11.5-15.3); Lymphocytes # 2.2 10^3/uL (0.8-4.8); Lymphocytes % 19.9 %; Mean Corpuscular HGB Conc 31.2 g/dL (30.0-36.0); Mean Corpuscular Hemoglobin 27.6 pg (28.0-34.0); Mean Corpuscular Volume 88.5 fl (81-99); Mean Platelet Volume 10.9 fL (7.4-10.4); Monocytes # 0.6 10^3/uL (0.2-0.9); Monocytes % 5.2 %; Neutrophils # 7.97 10^3/uL (1.8-7.7); Neutrophils % 71.8 %; Nucleated Red Blood Cells % 0 %; Platelet Count 306 10^3/cmm (130-400); Red Blood Count 5.03 10^6/uL (4.1-5.3); Red Cell Distribution Width 14.2 % (12.1-15.1); White Blood Count 11.1 10^3/uL (4.0-10.0)
[2022-12-31 04:08] LABS: Anion Gap 13.3 (5-19); Blood Urea Nitrogen 18 mg/dL (6-20); Calcium 8.9 mg/dL (8.5-10.5); Carbon Dioxide 25 mmol/L (22-29); Chloride 106 mmol/L (98-107); Glomerular Filtration Rate 104.2 mL/min (90-130); Glucose 101 mg/dL (65-115); Osmolality Calculated 292 mOsm/kg (285-295); Potassium 4.3 mmol/L (3.5-5.1); Sodium 140 mmol/L (136-145)
[2022-12-31] MEDS: metoprolol tartrate 1 mg/1 mL SDV 5 mL 5 MG IVP (08:27)
[2022-12-31] MEDS: amlodipine 10 mg Tablet PO (08:58)
[2022-12-31] MEDS: hyDRALAzine 25 mg Tablet PO ×3 (08:59→21:10)
[2022-12-31] MEDS: chlorthalidone 25 mg Tablet PO (08:59)
--- NOTE | 2022-12-31 09:34 | PM.PN ---
Subjective Subjective: Still hypertensive She had Pepsi last night, but stress test has been postponed I have added metoprolol she is still hypertensive Patient is not sure how she is tested for methamphetamine Marijuana positive Vitals/I&O/Wt Last Vital Signs Temp 97.9 F 12/31/22 07:00 Pulse 80 12/31/22 09:28 Resp 18 12/31/22 09:28 BP 183/113 12/31/22 09:00 Pulse Ox 95 12/31/22 09:28 O2 Del Method 12/31/22 09:28 12/30/22 12/31/22 12/31/22 22:59 06:59 14:59 Intake Total 110 / 110 Balance 110 / 110 Weight last 48 hrs Weight 99.79 kg Weight 99.79 kg Physical Exam Narrative: Awake and alert Euvolemic GCS 15 S1, S2 abdomen soft nonfocal neuro exam Currently doing well on room air Pleasant and cooperative Data 12/31/22 03:30 12/31/22 03:30 A&P Assessment and plan (1) Morbid obesity: (2) T wave inversion in EKG: (3) Hypertensive emergency: (4) Polysubstance abuse: Plan Hypertensive emergency T wave inversions No active chest pain Most likely related to polysubstance abuse hypertensive emergency LVH Awaiting echo Stress test has been postponed Optimize antihypertensive regimen GERD screen positive for methamphetamine and marijuana I will keep her here 1 more day to control her blood pressure She is full code I will let her have cardiac diet if no plan for stress test today DVT prophylaxis on board Attestations Medical Necessity Statement*: Discharge tomorrow Diagnoses Morbid obesity E66.01 T wave inversion in EKG R94.31 Hypertensive emergency I16.1 Polysubstance abuse F19.10
--- NOTE | 2022-12-31 09:37 | USCV_ITS ---
Valentina Brothers Age: 52 Gender: F : 1970 Exam Date: 12/31/2022 14:21 Ordering Phys: Troy Montano MD Technologist: CT Exam Location: [facility] [place] Indication: Hypertensive emergency BP: 137 / 91 HR: 71 Rhythm: Sinus Technical Quality: Adequate MEASUREMENTS (Male / Female) Normal Values 2D ECHO LV Diastolic Diameter PLAX 4.1 cm 4.2 - 5.9 / 3.9 - 5.3 cm LV Systolic Diameter PLAX 2.8 cm IVS Diastolic Thickness 1.4 cm 0.6 - 1.0 / 0.6 - 0.9 cm IVS Systolic Thickness 1.8 cm LVPW Diastolic Thickness 1.4 cm 0.6 - 1.0 / 0.6 - 0.9 cm LVPW Systolic Thickness 1.9 cm LVOT Diameter 2.0 cm LV Ejection Fraction 2D Teich 61.0 % LV Ejection Fraction MOD 2C 71.7 % LV Ejection Fraction 2C AL 71.1 % LA Diameter 2.2 cm LA Width 3.4 cm LA Height 5.6 cm RA Width 3.9 cm RA Height 4.8 cm Aorta at Sinotubular Diameter 2.8 cm IVC Diameter 1.3 cm M-MODE MV E Point Septal Separation 0.7 cm DOPPLER AV Peak Velocity 141.0 cm/s LVOT Peak Velocity 107.0 cm/s AV Area Cont Eq vti 2.1 cm squared AV Area Cont Eq pk 2.4 cm squared MV Peak Velocity 101.0 cm/s MV Area PHT 3.3 cm squared Mitral E to A Ratio 0.7 MV E' Velocity 42.8 cm/s Mitral E to MV E' Ratio 11.7 Mitral E to LV E' Lateral Ratio 9.8 Mitral E to LV E' Septal Ratio 14.5 TR Peak Velocity 318.8 cm/s TR Peak Gradient 40.6 mmHg Right Atrial Pressure 3.0 mmHg Pulmonary Artery Systolic Pressu 43.6 mmHg PV Peak Velocity 113.0 cm/s RV Acceleration Time 0.1 s RV Ejection Time 0.3 s RV AcT/ET 0.3 FINDINGS Left Ventricle Left ventricle is normal in size. LV systolic function is normal with EF of 55-60%. No regional wall motion abnormalities. Grade 1 diastolic dysfunction Right Ventricle Normal in size and function Right Atrium Normal in size Left Atrium Normal in size Mitral Valve Grossly normal. Mild mitral regurgitation. Aortic Valve Structurally normal aortic valve. No significant stenosis or regurgitation. Tricuspid Valve Mild tricuspid regurgitation. RVSP is 40-45mmHg. This is consistent with mild pulmonary hypertension Pulmonic Valve Not well visualized. Trace pulmonic regurgitation. Pericardium Normal Aorta Normal in size IVC Appears to be normal CONCLUSIONS LV systolic function is normal with EF of 55-60% Grade 1 diastolic dysfunction Mild mitral regurgitation Mild tricuspid regurgitation Mild pulmonary hypertension Trace pulmonic regurgitation No comparison studies are available Richmond Gilmore MD (Electronically Signed) Final Date: 31 December 2022 17:16 S
[2022-12-31] MEDS: metoprolol tartrate 50 mg Tablet PO ×2 (10:44→21:09)
[2022-12-31] MEDS: lisinopril 20 mg Tablet PO (10:54)
[2022-12-31] MEDS: acetaminophen 500 mg Tablet PO (17:51)
[2022-12-31] MEDS: enoxaparin 40 mg/0.4 mL Syringe SUBCUT (18:29)
[2022-12-31] MEDS: ALPRAZolam 0.5 mg Tablet PO (21:10)
[2023-01-01] VITALS (11 sets, daily range): BP systolic 114–145; BP diastolic 76–93; PULSE 66–86; RESP 16–25; TEMP 36.8–37.1; O2SAT 96–100
[2023-01-01] MEDS: acetaminophen 500 mg Tablet PO (01:20)
--- NOTE | 2023-01-01 06:46 | ECG_ITS ---
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 Interpretive Statements NAME OF STUDY: LEXISCAN SESTAMIBI STRESS TEST INDICATION: [Chest Pain, ] Procedure: At the baseline, the blood pressure was 140/100 mmHg with a heart rate of 78 bpm. The electrocardiogram showed normal sinus rhythm, normal axis with normal ST and T's. The Lexiscan was infused over a period of 20 seconds. A total of 0.4 mg of Lexiscan was infused. The stress phase was continued for a total of 5 minutes. Heart rate was at the end of stress phase was 78 bpm and a blood pressure of 95/78mmHg. The EKG at the peak infusion revealed normal sinus rhythm with no significant ST-T wave changes. Sestamibi was injected 20 seconds after the Lexiscan infusion. Blood pressure at the end of recovery phase was 114/76 mmHg with a heart rate of 77 bpm. Conclusion: 1. Normal EKG response to Lexiscan infusion 2. No Lexiscan induced chest pain or cardiac arrhythmia. 3. Normal blood pressure and heart rate response. 4. Sestamibi/sestamibi perfusion scan pending; see separate report. Electronically Signed On 01-11-2023 14:37:17 CDT by Richmond Gilmore M.D. [id number]
--- NOTE | 2023-01-01 07:00 | NMCV_ITS ---
NM paola perf SPECT r/s* [id number] Valentina Brothers Age: 52 Gender: F : 1970 Exam Date: 01/01/2023 06:40 Ordering Phys: Troy Montano MD Technologist: FRANCISCA Webber Exam Location: [facility] Indications: CHEST PAIN STRESS TEST Please [facility] IMAGE PROTOCOL Rest/Stress 1 Lexiscan Day Radiopharmaceutical Dose (mCi) Administration Site Administered by Rest: Tc-99m 10.9 IV FRANCISCA Anthony Sestamibi Stress:Tc-99m 32.6 IV FRANCISCA Anthony Sestamibi Rest: 01-Jan-2023 60 Discovery 630 Stress: 01-Jan-2023 30 Discovery 630 0.4mg Lexiscan. Images obtained in supine and prone position. SPECT RESULTS Technical Quality: Excellent Raw Data Analysis: Normal Image Corrections: No attenuation or motion correction applied Summed Stress Score: 0 Summed Rest Score: 0 Summed Difference Score: 0 PERFUSION FINDINGS SPECT images demonstrate homogeneous tracer distribution throughout the myocardium. FUNCTIONAL RESULTS (calculated via Gated SPECT) Stress Image LV EF (%): 52 Stress EDV (mL):112 TID: 1.15 Stress ESV (mL):54 FUNCTIONAL FINDINGS: There is normal left ventricular systolic function. IMPRESSIONS 1. Normal myocardial perfusion imaging with no evidence of ischemia 2. LV systolic function is normal Richmond Gilmore MD (Electronically Signed) Final Date: 01 January 2023 12:36 S
[2023-01-01] MEDS: regadenoson 0.4 Mg/5 ml Syringe IVP (07:10)
--- NOTE | 2023-01-01 08:41 | P.DS_ITS ---
Discharge Providers Date of Admission: 12/30/22 18:14 Date of Discharge: January 01, 2023 Attending Provider at Admission: Troy Montano MD Attending Provider at Discharge: Troy Montano MD Primary Care Provider: Nora Donahue MD Diagnoses at Discharge Discharge Diagnosis (1) Morbid obesity: Status: Acute (2) T wave inversion in EKG: Status: Acute (3) Hypertensive emergency: Status: Acute (4) Polysubstance abuse: Status: Acute Reason for Visit Reason for Visit: Sent from , BP issues Hospital Course Hospital Course 53 YO female who came in for management & evaluation of hypertension on arrival blood pressure was 180s/110 mmHg, she has not seen a physician in a long time, she does not take any medication for her blood pressure at home, she tested positive for marijuana and amphetamine, T wave inversions were noted on her EKG however she remained chest pain-free, for her hypertension management she was given lisinopril, amlodipine, metoprolol and chlorthalidone. She did not require any continuous IV medications for management of blood pressure.. She has been instructed to maintain a log of her blood pressure to show to her PCP. Echo was unremarkable other than diastolic dysfunction stress test was requested Head CT unremarkable Chest x-ray unremarkable Physical Exam Narrative: S1, S2 Nonfocal neuro exam Doing well on room air Abdomen soft GCS 15 Discharge Data Studies Completed and Pending Completed Studies During Hospitalization Category Date Time Status CT head wo con* [id number] Stat Cat Scan 12/30/22 14:57 Completed Sestamibi Stress Test Request Routine Exams 01/01/23 06:46 Draft XR chest 1V portable [id number] Urgent Exams 12/30/22 14:57 Completed CV. echo complete* [id number] Routine Ultrasound 12/31/22 09:37 Completed Pending at discharge Category Date Time Status Sestamibi Stress Test Request Routine Exams 12/30/22 19:28 Stop Req NM paola perf SPECT r/s* [id number] Routine Nuc Med 01/01/23 07:00 Ordered Radiology Impressions Chest X-Ray 12/30/22 14:57 IMPRESSION: 1. No acute process noted. 2. Probable hiatal hernia. Head CT 12/30/22 14:57 IMPRESSION: 1. No CT evidence of acute intracranial pathology. 2. Additional findings, as above. Laboratory Results WBC 11.1 10^3/uL (4.0-10.0) H 12/31/22 03:30 RBC 5.03 10^6/uL (4.1-5.3) 12/31/22 03:30 Hgb 13.9 g/dL (11.5-15.3) 12/31/22 03:30 Hct 44.5 % (37.0-47.0) 12/31/22 03:30 MCV 88.5 fl (81-99) 12/31/22 03:30 MCH 27.6 pg (28.0-34.0) L 12/31/22 03:30 MCHC 31.2 g/dL (30.0-36.0) 12/31/22 03:30 RDW 14.2 % (12.1-15.1) 12/31/22 03:30 Plt Count 306 10^3/cmm (130-400) 12/31/22 03:30 MPV 10.9 fL (7.4-10.4) H 12/31/22 03:30 Neut % (Auto) 71.8 % 12/31/22 03:30 Lymph % (Auto) 19.9 % 12/31/22 03:30 [place] % (Auto) 5.2 % 12/31/22 03:30 Eos % (Auto) 2.3 % 12/31/22 03:30 Baso % (Auto) 0.5 % 12/31/22 03:30 Neut # (Auto) 7.97 10^3/uL (1.8-7.7) H 12/31/22 03:30 Lymph # (Auto) 2.2 10^3/uL (0.8-4.8) 12/31/22 03:30 [place] # (Auto) 0.6 10^3/uL (0.2-0.9) 12/31/22 03:30 Eos # (Auto) 0.3 10^3/uL (0.0-0.8) 12/31/22 03:30 Baso # (Auto) 0.1 10^3/uL (0.0-0.1) 12/31/22 03:30 Nucleated RBC % (auto) 0 % 12/31/22 03:30 Nucleated RBCs # 0.0 /100WBC 12/31/22 03:30 Sodium 140 mmol/L (136-145) 12/31/22 03:30 Potassium 4.3 mmol/L (3.5-5.1) 12/31/22 03:30 Chloride 106 mmol/L (98-107) 12/31/22 03:30 Carbon Dioxide 25 mmol/L (22-29) 12/31/22 03:30 Anion Gap 13.3 (5-19) 12/31/22 03:30 BUN 18 mg/dL (6-20) 12/31/22 03:30 Creatinine 0.6 mg/dL (0.5-0.9) 12/31/22 03:30 GFR Calculation 104.2 mL/min (90-130) 12/31/22 03:30 Glucose 101 mg/dL (65-115) 12/31/22 03:30 Estimat Average Glucose 128 12/30/22 14:58 Hemoglobin A1c 6.1 % (4.0-6.0) H 12/30/22 14:58 Calculated Osmolality 292 mOsm/kg (285-295) 12/31/22 03:30 Calcium 8.9 mg/dL (8.5-10.5) 12/31/22 03:30 Magnesium 2.0 mg/dL (1.7-2.3) 12/31/22 03:30 Total Bilirubin 0.4 mg/dL (0.15-1.2) 12/30/22 14:45 AST 23 U/L (0-32) 12/30/22 14:45 ALT 16 U/L (0-33) 12/30/22 14:45 Alkaline Phosphatase 100 U/L (35-105) 12/30/22 14:45 Troponin T Baseline 16 ng/L (0-10) H 12/30/22 14:45 Troponin T 120 Minute 15.83 ng/L (0-10) H 12/30/22 16:23 Delta Troponin T -0.17 ABS# (0-10) L 12/30/22 16:23 Troponin T Hi Sens 6Hr 16.63 ng/L (0-10) H 12/30/22 21:42 Troponin T Hi Sens 6Hr Delta 0.63 ng/L (0-12) 12/30/22 21:42 NT-Pro-B Natriuret Pep 741 pg/mL (0-125) H 12/30/22 14:45 Total Protein 8.2 g/dL (6.6-8.7) 12/30/22 14:45 Albumin 4.0 g/dL (3.5-5.2) 12/30/22 14:45 Globulin 4.2 g/dL (1.3-4.6) 12/30/22 14:45 TSH 1.28 uIU/mL (0.27-4.20) 12/30/22 16:23 Urine Color Yellow (Yellow) 12/30/22 15:45 Urine Appearance Cloudy (CLEAR) A 12/30/22 15:45 Urine pH 5 (5-7) 12/30/22 15:45 Ur Specific [place] 1.025 (1.005-1.030) 12/30/22 15:45 Urine Protein Neg (Negative) 12/30/22 15:45 Urine Glucose (UA) Norm (Normal) 12/30/22 15:45 Urine Ketones Negative (Negative) 12/30/22 15:45 Urine Blood Neg (Negative) 12/30/22 15:45 Urine Nitrate Negative (Negative) 12/30/22 15:45 Urine Bilirubin Neg (Negative) 12/30/22 15:45 Urine Urobilinogen 1 mg/dL (Negative) H 12/30/22 15:45 Ur Leukocyte Esterase Negative (Negative) 12/30/22 15:45 Urine RBC 0-4 /hpf (0-2) H 12/30/22 15:45 Urine WBC 0-4 /hpf (0-5) H 12/30/22 15:45 Ur Squamous Epith Cells 40-55 /hpf (0-5) H 12/30/22 15:45 Amorphous Sediment Not Reportable 12/30/22 15:45 Urine Bacteria 1+ /hpf (NONE) H 12/30/22 15:45 Urine Opiates Screen Negative ng/mL (Negative) 12/30/22 15:45 Ur Barbiturates Screen Negative ng/mL (Negative) 12/30/22 15:45 Ur Phencyclidine Scrn Negative ng/mL (Negative) 12/30/22 15:45 Ur Amphetamines Screen Positive ng/mL (Negative) H 12/30/22 15:45 U Benzodiazepines Scrn Negative ng/mL (Negative) 12/30/22 15:45 Urine Cocaine Screen Negative ng/mL (Negative) 12/30/22 15:45 U Marijuana (THC) Screen Positive ng/mL (Negative) H 12/30/22 15:45 Vitals Last Vital Signs Temp 98.2 F 01/01/23 04:57 Pulse 76 01/01/23 08:00 Resp 18 01/01/23 08:00 BP 142/92 01/01/23 08:00 Pulse Ox 96 01/01/23 08:00 O2 Del Method 01/01/23 08:00 Discharge Plan Discharge Patient Disposition: Home Condition: Stable Prescriptions: New amlodipine 10 mg Tablet 10 mg PO DAILY Qty: 60 3RF chlorthalidone 25 mg Tablet 25 mg PO DAILY Qty: 60 2RF metoprolol tartrate 50 mg Tablet 50 mg PO 1100,2100 Qty: 60 2RF lisinopril 20 mg Tablet 20 mg PO 1100 Qty: 60 2RF Continued loratadine [Claritin] 10 mg tablet 10 mg PO DAILY multivitamin Tablet 1 tab PO DAILY aspirin 325 mg Tablet 325 mg PO DAILY milk thistle 500 mg Capsule 500 mg PO DAILY Rx Instructions: give with meal/snack Vitamin C 500 mg Tablet 500 mg PO DAILY vitamin B complex Tablet 1 tab PO DAILY biotin 2,500 mcg Capsule 2,500 mcg PO DAILY Bioflex 288-12-38-40 mg Tablet 1 tab PO DAILY Discharge Orders: Discharge Order (Routine); Ordered 01/01/23 Ordered By: Troy Montano Referrals: Nora Donahue MD [Primary Care Provider] - 7-10 days Patient Instructions: Opioid Safety Discharge Attestations Time Spent in Discharge Care*: greater than 30 min Quality Metrics Clinical Quality Measures [ No reported AMI, CVA or VTE this stay] Coding Level of Care Code Acute Code for Chg Fwd Diagnoses Morbid obesity E66.01 T wave inversion in EKG R94.31 Hypertensive emergency I16.1 Polysubstance abuse F19.10
[2023-01-01] MEDS: amlodipine 10 mg Tablet PO (09:13)
[2023-01-01] MEDS: chlorthalidone 25 mg Tablet PO (09:13)
[2023-01-01] MEDS: hyDRALAzine 25 mg Tablet PO (09:13)
== END 2023-01-01 10:40 | disposition home or self-care (01) ==
LOC: ER 17:33 → CSU 18:15
PROVIDERS: Physician Assistant; Admitting Provider Internal Medicine; Emergency Provider Family Medicine; PCP Family Medicine; Visit Provider Internal Medicine
DX: I16.1 Hypertensive emergency (principal); R94.31 Abnormal electrocardiogram [ECG] [EKG]; F19.10 Other psychoactive substance abuse, uncomplicated; E66.01 Morbid (severe) obesity due to excess calories; Z68.35 Body mass index [BMI] 35.0-35.9, adult
CPT/HCPCS: 36415; 70450; 71045; 78452; 80048; 80053; 80306; 81001; 81015; 83036; 83735; 83880; 84443; 84484; 85025; 93005; 93017; 93306; 96365; 96366; 96372; 96374; 96375; 96376; 99285; A9500; G0378; J0360; J1650; J2785; J3490

== ENCOUNTER → 2025-03-27 09:25 | Outpatient (BNVA) | payer MEDICARE, MEDICAID, SELFPAY | PROVIDERS: PCP Nurse Practitioner; Visit Provider Nurse Practitioner | DX: M16.12 Unilateral primary osteoarthritis, left hip (principal); I10 Essential (primary) hypertension; R30.0 Dysuria; Z98.890 Other specified postprocedural states | CPT/HCPCS: 73502; 80053; 80061; 81000; 84443; 85025; 87086 ==

== ENCOUNTER 2025-03-30 07:45 | Outpatient (CLI) | payer MEDICARE, MEDICAID, SELFPAY ==
--- NOTE | 2025-03-30 08:20 | MM_ITS ---
WS: [id number] BILATERAL SCREENING DIGITAL TOMOSYNTHESIS MAMMOGRAM WITH CAD HISTORY: Z12.39 - Encounter for other screening for malignant neop... COMPARISON: None available. Bilateral CC and MLO views with tomosynthesis and synthetic mammography submitted. Computer aided detection analyzed. Breast composition: The breasts are almost entirely fatty. No suspicious masses, microcalcifications or architectural distortion. Benign calcification LEFT breast. MM/MM scr BI tomosynthesis [id number] IMPRESSION: BI-RADS: 2 - Benign. FOLLOW UP: 1 Year Follow-up
== END 2025-03-30 07:46 | disposition home or self-care (01) ==
LOC: RAD 07:47
PROVIDERS: PCP Nurse Practitioner; Visit Provider Nurse Practitioner
DX: Z12.31 Encounter for screening mammogram for malignant neoplasm of breast (principal); R92.313 Mammographic fatty tissue density, bilateral breasts; R92.1 Mammographic calcification found on diagnostic imaging of breast
CPT/HCPCS: 77063; 77067

== ENCOUNTER → 2025-04-26 09:27 | Outpatient (BNVA) | payer MEDICARE, MEDICAID, SELFPAY | PROVIDERS: PCP Nurse Practitioner; Visit Provider Student in an Organized Health Care Education/Training Program | DX: M25.552 Pain in left hip (principal); M12.552 Traumatic arthropathy, left hip | CPT/HCPCS: 73502; 99203 ==

== ENCOUNTER → 2025-05-19 10:00 | Outpatient (BNVA) | payer MEDICARE, MEDICAID, SELFPAY | PROVIDERS: PCP Nurse Practitioner; Visit Provider Student in an Organized Health Care Education/Training Program | DX: M12.552 Traumatic arthropathy, left hip (principal) | CPT/HCPCS: 20610; 77002; J3301; J9999 ==

== ENCOUNTER → 2025-06-20 09:55 | Outpatient (BNVA) | payer MEDICARE, MEDICAID, SELFPAY | PROVIDERS: PCP Nurse Practitioner; Visit Provider Student in an Organized Health Care Education/Training Program | DX: M12.552 Traumatic arthropathy, left hip (principal) | CPT/HCPCS: 99213 ==

== ENCOUNTER → 2025-07-11 07:50 | Outpatient (BNVA) | payer MEDICARE, MEDICAID, SELFPAY | PROVIDERS: PCP Nurse Practitioner; Visit Provider Physician Assistant | DX: M12.552 Traumatic arthropathy, left hip (principal); Z97.8 Presence of other specified devices | CPT/HCPCS: 99213 ==

== ENCOUNTER 2025-07-26 13:11 | Outpatient (CLI) | payer MEDICARE, MEDICAID, SELFPAY ==
--- NOTE | 2025-07-26 13:30 | CT_ITS ---
WS: [id number] CT LEFT HIP, NONCONTRAST HISTORY: injury of left hip Technique: All CT scans at [facility] use at least one of these dose optimization techniques: automated exposure control; mA and/or kV adjustment per patient size (includes targeted exams where dose is matched to clinical indication); or iterative reconstruction. DLP: 757.11 mGy.cm COMPARISON: Radiograph 04/26/2025 Status post plate and screw fixation of the acetabulum. No acute fracture. Mild lateral subluxation of the LEFT hip from the acetabulum. There is increased soft tissue within the acetabulum which is probably synovial thickening. There is osteophytic ridging and mild deformity of the LEFT femoral head and neck. Osteophytic ridging around the head-neck junction. There is bone upon bone directed over the lateral acetabulum. Subchondral cystic changes on both sides of the joint space. There are small breaks in the surfaces of the subchondral cysts. There are a few small calcific densities or bone fragments lateral to the acetabulum. No additional abnormalities are identified. CT/CT hip LT wo con* [id number] IMPRESSION: 1. Status post prior plate and screw fixation of the acetabulum. 2. Mild lateral subluxation of the LEFT hip from the acetabulum. 3. Marked soft tissue thickening in the joint space of the LEFT hip from synov itis. 4. Bone upon bone involving the femoral head and the lateral acetabulum. 5. Numerous subchondral cystic changes involve the acetabulum and femoral head associated with the bone contact.
== END 2025-07-26 13:12 | disposition home or self-care (01) ==
LOC: RAD 13:12
PROVIDERS: PCP Nurse Practitioner; Visit Provider Physician Assistant
DX: Z12.2 Encounter for screening for malignant neoplasm of respiratory organs (principal); Z97.8 Presence of other specified devices; M12.552 Traumatic arthropathy, left hip; M85.652 Other cyst of bone, left thigh
CPT/HCPCS: 73700

== ENCOUNTER → 2025-08-23 08:20 | Outpatient (BNVA) | payer MEDICARE, MEDICAID, SELFPAY | PROVIDERS: PCP Nurse Practitioner; Visit Provider Student in an Organized Health Care Education/Training Program | DX: M12.552 Traumatic arthropathy, left hip (principal); Z51.89 Encounter for other specified aftercare; Z97.8 Presence of other specified devices | CPT/HCPCS: 99214 ==

== ENCOUNTER 2025-09-18 10:21 | Outpatient (CLI) | payer MEDICARE, MEDICAID, SELFPAY ==
--- NOTE | 2025-09-18 10:30 | CT_ITS ---
WS: [id number] CT LEFT hip for JOHNATHAN procedure HISTORY: surgical planning Date: 09/18/2025 10:27 AM TECHNIQUE: Protocol for JOHNATHAN total hip replacement has been obtained. This includes axial imaging from the hip joint through the knee joint. DLP: 855 FINDINGS: Prior postoperative changes plate and screw fixation of the acetabulum. Advanced degenerative narrowing LEFT hip with [id number] articulation with subchondral cystic change and sclerosis involving the femoral head and acetabulum. Lateral subluxation of the LEFT hip. Osteopenia. Moderate facet arthropathy lower lumbar spine. Moderate degenerative narrowing RIGHT hip. Mild degenerative arthritis sacroiliac joints. CT/CT hip LT [facility] [id number] IMPRESSION: CT imaging provided for [facility] robotic total hip replacement.
== END 2025-09-18 10:22 | disposition home or self-care (01) ==
LOC: RAD 10:21
PROVIDERS: PCP Nurse Practitioner; Visit Provider Student in an Organized Health Care Education/Training Program
DX: M12.552 Traumatic arthropathy, left hip (principal)
CPT/HCPCS: 73700

== ENCOUNTER → 2025-10-04 11:32 | Outpatient (BNVA) | payer MEDICARE, MEDICAID, SELFPAY | PROVIDERS: PCP Nurse Practitioner; Visit Provider Family Medicine | DX: Z01.818 Encounter for other preprocedural examination (principal) | CPT/HCPCS: 80053; 81000; 85025 ==